=== PATIENT | female | born 1995 | race Caucasian/White ===

== ENCOUNTER → 2020-11-07 17:50 | Outpatient (CLI) | payer OTHER, SELFPAY ==
--- NOTE | 2020-11-07 | DI.RAD.S_ITS ---
PROCEDURE: XR FOOT RT MIN 3V INDICATIONS: FOREIGN BODY IN RIGHT FOOT TECHNIQUE: 3 views of the foot were acquired. COMPARISON: None. FINDINGS: Bones: No acute fractures or dislocations. No suspicious bony lesions. Soft tissues: A radiopaque marker BB was placed on the skin at the plantar lateral aspect of the foot. No separate radiopaque foreign body is identified. IMPRESSION: No acute osseous abnormality. No radiopaque foreign body. Dictated by: Eduardo Cruz M.D. on 11/07/2020 at 17:53 Approved by: Eduardo Cruz M.D. on 11/07/2020 at 17:55
== END ==
PROVIDERS: PCP Family Medicine; Referring Provider Family Medicine; Visit Provider Family Medicine
DX: S90.851A Superficial foreign body, right foot, initial encounter (principal)
CPT/HCPCS: 73630

== ENCOUNTER 2023-04-26 23:50 | Observation (INO) | payer OTHER, SELFPAY ==
[2023-04-27] VITALS (20 sets, daily range): BP systolic 100–174; BP diastolic 54–102; PULSE 52–81; RESP 11–26; TEMP 35.8–36.6; O2SAT 90–99; BMI 38.5
--- NOTE | 2023-04-27 | PATH_ITS ---
[facility] Accession Number: [id number] No. of containers..01 Tissue . 01 Material submitted: . appendix - APPENDIX . 01 Diagnosis: Appendix, Appendectomy: Acute appendicitis and periappendicitis. [facility] 04/30/2023 1103 Local . 01 Electronically signed: . Nelli De La Cruz MD, Pathologist NPI- [id number] . 01 Gross description: . The specimen is received in formalin labeled with the patient's name, , and appendix, consists of a mariee, vermiform appendix measuring 7.7 cm in length by 1.0 cm in average diameter with mariee, roughened serosa and adherent material consistent with exudate. The mesoappendix extends out to 2.4 cm, the margin is inked blue, and sectioning reveals a lumen filled with red-brown, semi-solid material, and ranging from 0.3 to 0.8 cm in greatest dimension. No fecaliths identified. The romero are mariee and average 0.2 cm thick with no lesions or perforations identified. Talend Etl Developer sections to include the margin, one-half of the bisected distal tip, and cross section are submitted in cassette A1. ([id number]) /MRV 04/28/2023 1232 Local . 01 Pathologist provided ICD-10: K35.80 . 01 CPT . 019029 Specimen Comment: A courtesy copy of this report has been sent to [phone] Performed at: 01 [facility] [address] [place] [address], [place], [place] [id number] MD Vj Hull MD Phone: [phone]
[2023-04-27] MEDS: ONDANSETRON 4 MG ODT SL (00:10)
[2023-04-27 00:38] LABS: Add Manual Diff / Slide Review NO; Basophils Absolute Auto 100 /uL (0-100); Basophils Percent Auto 0.7 % (0-2); Eosinophils Absolute Auto 400 /uL (0-450); Eosinophils Percent Auto 2.7 % (2-4); Hematocrit 42.7 % (36-46); Hemoglobin 14.6 g/dL (12.0-16.0); Lymphocytes Absolute Auto 2200 /uL (1100-4500); Lymphocytes Percent Auto 16.7 % (25-40); Mean Corpuscular HGB Conc 34.2 % (30-36); Mean Corpuscular Hemoglobin 29.6 PG (26-34); Mean Corpuscular Volume 86.6 fL (80-100); Monocytes Absolute Auto 800 /uL (0-900); Monocytes Percent Auto 5.7 % (3-14); Neutrophils Absolute Auto 9800 /uL (1500-7000); Neutrophils Percent Auto 74.2 % (50-75); Platelet Count 221 X10^3/uL (150-400); Red Blood Cell Count 4.93 X10^6/uL (4.0-5.2); Red Cell Distribution Width 12.7 % (11.6-14.8); White Blood Cell Count 13.3 X10^3/uL (4.5-11.0)
[2023-04-27 00:44] LABS: Alanine Aminotransferase 38 IU/L (<35); Albumin 4.6 g/dL (3.5-5.0); Albumin Globulin Ratio 1.3 (1.0-2.8); Alkaline Phosphatase 61 U/L (38-126); Aspartate Aminotransferase 32 IU/L (14-36); BUN Creatinine Ratio 13.2 (6-22); Bilirubin Total 0.7 mg/dL (0.2-1.3); Blood Urea Nitrogen 9 mg/dL (7-17); Calcium 10.1 mg/dL (8.4-10.2); Carbon Dioxide 17 mmol/L (22-32); Chloride 106 mmol/L (98-107); Estimated Glomerular Filt Rate > 60 mL/min (>60); Globulin 3.5 g/dL (1.7-4.1); Glucose 124 mg/dL (70-100); HEMOLYSIS < 15 (0-50); Lipase 73 U/L (23-300); Potassium 3.8 mmol/L (3.4-5.1); Sodium 137 mmol/L (137-145); Total Protein 8.1 g/dL (6.3-8.2)
--- NOTE | 2023-04-27 01:01 | ED_ITS ---
HPI - Nausea/Vomiting/Diarrhea General Chief complaint: Nausea/Vomiting/Diarrhea Stated complaint: abd pain, vomiting Time Seen by Provider: 04/27/23 01:01 Source: patient and family Mode of arrival: Ambulatory History of Present Illness HPI Narrative: 27-year-old woman with a history of depression and anxiety had recently done a trial of sertraline and hydroxyzine which was ineffective and was discontinued a month ago. She uses a NuvaRing for control as well as ?the pullout method? she states she has not very consistent with the NuvaRing and after 3 weeks it was removed 2-3 days ago. She is noticing some mild vaginal discharge no significant odors but does not notice any bleeding from her vagina at this time. She presents today complaining of nausea vomiting and abdominal pain increasing in intensity since the . She has had a couple episodes of emesis today. She describes diffuse abdominal pain periumbilical right-sided but nonlocalizing. She has been passing gas. She has had significant decrease in appetite has not been eating much but feels that the amount of urine and stool that she is producing is appropriate given her p.o. intake. She has not complaining of significant headaches, chest pain cough, fevers, palpitations, lower extremity edema. Related Data Home Medications Medication Instructions Recorded Confirmed etonogestrel 0.12 mg-ethinyl 1 vag ring vaginal DAILY 04/27/23 04/27/23 estradiol 0.015 mg/24 hr vaginal control ring (NuvaRing) hydroxyzine pamoate 50 mg capsule 50 mg PO 3XD PRN anxiety 04/27/23 04/27/23 sertraline 100 mg tablet 50 mg PO DAILY 04/27/23 04/27/23 Previous Rx's Medication Instructions Recorded amoxicillin 875 mg-potassium 1 tab PO BID #10 tabs 04/27/23 clavulanate 125 mg tablet celecoxib 200 mg capsule (Celebrex) 200 mg PO BID #60 caps 04/27/23 oxycodone-acetaminophen 5 mg-325 1 tab PO Q4HR PRN Pain, Moderate 04/27/23 mg tablet (4-6) #20 tabs Allergies Allergy/AdvReac Type Severity Reaction Status Date / Time No Known Drug Allergies Allergy Verified 04/30/23 22:54 Review of Systems Review of Systems Narrative: Pertinent positive and negative findings as per HPI Patient History Medical History (Updated 05/01/23 @ 05:00 by Franci Maher MD) Appendicitis Social History household members: family Smoking Status: Current every day smoker alcohol intake: current Exam Initial Vital Signs Initial Vital Signs: Vital Signs Temperature 97.6 F 04/27/23 00:15 Pulse Rate 64 04/27/23 00:15 Respiratory Rate 16 04/27/23 00:15 Blood Pressure 161/102 H 04/27/23 00:15 Pulse Oximetry 97 04/27/23 00:15 Oxygen Delivery Method Room Air 04/27/23 00:15 General: 276 lb, pale appearing mildly diaphoretic appears to be in pain but is able to cooperate with history and exam. HEENT: Moist mucous membranes, normal sclera with reactive pupils, Neck: No JVD, supple Respiratory: Lungs are clear to auscultation, no wheezing no rales no rhonchi. Full and symmetrical air movement Cardiac: Regular rate and rhythm no murmurs no bruits Abdomen: Soft, diffuse tenderness more epigastric, periumbilical and down into the right lower quadrant but certainly not localizing. She does not have any rebound or guarding Skin: Pale, slightly diaphoretic Neurologic: Globally weak but otherwise Grossly neurologically intact with no obvious asymmetries or abnormalities Extremities: No trauma, well perfused Psych: Cooperative, appropriate insight and affect Course Orders Ordered: Discontinued Medications Amoxicillin/Clavulanate Potassium (Amoxicillin/Clav 875/125 Mg) 1 tab PO BID [facility] Last Admin: 04/28/23 08:45 Dose: 1 tab Documented By: Admin: 04/27/23 21:11 Dose: 1 tab Documented By: Admin: 04/27/23 12:18 Dose: 1 tab Documented By: WENDY Celecoxib (Celecoxib 200 Mg Capsule) 200 mg PO BID [facility] Last Admin: 04/28/23 08:45 Dose: 200 mg Documented By: Admin: 04/27/23 21:11 Dose: 200 mg Documented By: Admin: 04/27/23 09:40 Dose: 200 mg Documented By: JOEY Bupivacaine HCl 30 ml/ (Epinephrine HCl 0.15 mg) 0 ml INJ NOW ONE Stop: 04/27/23 10:49 Last Admin: 04/27/23 10:48 Dose: 6 ml Documented By: LISA Gabapentin (Gabapentin 300 Mg Capsule) 300 mg PO NOW ONE Stop: 04/27/23 06:50 Last Admin: 04/27/23 09:40 Dose: 300 mg Documented By: JOEY Hydromorphone HCl (Hydromorphone 0.5 Mg Inj) 0.5 mg IV Q15MIN PRN PRN Reason: Pain, Last Admin: 04/27/23 02:35 Dose: 0.5 mg Documented By: Admin: 04/27/23 01:30 Dose: 0.5 mg Documented By: MIREYA Hydromorphone HCl (Hydromorphone 0.5 Mg Inj) 0.5 mg IV Q2H PRN PRN Reason: Pain, Severe (7-10) Last Admin: 04/27/23 08:35 Dose: 0.5 mg Documented By: Admin: 04/27/23 04:36 Dose: 0.5 mg Documented By: Hydromorphone HCl (Hydromorphone 1 Mg Inj) 0 mg IV Q5MIN PRN PRN Reason: Pain, Mild (1-3) Hydromorphone HCl (Hydromorphone 1 Mg Inj) 0 mg IV Q5MIN PRN PRN Reason: Pain, Moderate (4-6) Hydromorphone HCl (Hydromorphone 1 Mg Inj) 0 mg IV Q5MIN PRN PRN Reason: Pain, Severe (7-10) Hydroxyzine Pamoate (Hydroxyzine Pamoate 25 Mg Capsule) 50 mg PO TID PRN PRN Reason: Anxiety Sodium Chloride (Normal Saline 0.9%) 1,000 mls @ 1,000 mls/hr IV BOLUS ONE Stop: 04/27/23 02:11 Last Infusion: 04/27/23 02:38 Dose: Infused Documented By: Admin: 04/27/23 01:30 Dose: 1,000 mls/hr Documented By: MIREYA Sodium Chloride (Normal Saline 0.9%) 1,000 mls @ 150 mls/hr IV CONT YIMI Last Admin: 04/27/23 02:42 Dose: 150 mls/hr Documented By: MIREYA Piperacillin Sod/Tazobactam (Sod 4.5 gm/ Sodium Chloride) 100 mls @ 200 mls/hr IV NOW ONE Stop: 04/27/23 02:39 Last Infusion: 04/27/23 03:46 Dose: Infused Documented By: Admin: 04/27/23 03:16 Dose: 200 mls/hr Documented By: Metoclopramide HCl (Metoclopramide 10 Mg/2 Ml Inj) 10 mg IV NOW ONE Stop: 04/27/23 01:13 Last Admin: 04/27/23 01:30 Dose: 10 mg Documented By: MIREYA Ondansetron HCl (Ondansetron 4 Mg Odt) 4 mg SL NOW ONE Stop: 04/27/23 00:08 Last Admin: 04/27/23 00:10 Dose: 4 mg Documented By: JULIAN Ondansetron HCl (Ondansetron 4 Mg Odt) 4 mg PO NOW PRN PRN Reason: Nausea And Vomiting Ondansetron HCl (Ondansetron 4 Mg/2 Ml Inj) 4 mg IV NOW PRN PRN Reason: Nausea And Vomiting Ondansetron HCl (Ondansetron 4 Mg/2 Ml Inj) 4 mg IV Q6HR PRN PRN Reason: Nausea And Vomiting Ondansetron HCl (Ondansetron 4 Mg/2 Ml Inj) 4 mg IV NOW PRN PRN Reason: Nausea And Vomiting Oxycodone HCl (Oxycodone Ir 5 Mg Tablet) 5 mg PO PACUNOW PRN PRN Reason: Mild or moderate pain Oxycodone/Acetaminophen (Oxycodone/Acetaminophen 5/325 Tablet) 1 tab PO Q4HR PRN PRN Reason: Pain, Moderate (4-6) Last Admin: 04/28/23 08:45 Dose: 1 tab Documented By: Admin: 04/27/23 19:45 Dose: 1 tab Documented By: Admin: 04/27/23 14:34 Dose: 1 tab Documented By: WENDY Oxycodone/Acetaminophen (Oxycodone/Acetaminophen 5/325 Tablet) 2 tab PO Q6HR PRN PRN Reason: Pain, Severe (7-10) Last Admin: 04/28/23 02:19 Dose: 2 tab Documented By: THAIS Scopolamine (Scopolamine 1 Patch) 1 patch TOP NOW ONE Stop: 04/27/23 06:50 Last Admin: 04/27/23 09:40 Dose: 1 patch Documented By: JOEY Sertraline HCl (Sertraline 50 Mg Tablet) 50 mg PO DAILY YIMI Last Admin: 04/28/23 11:22 Dose: Not Given Documented By: Admin: 04/27/23 12:19 Dose: Not Given Documented By: CLL Vital Signs Vital signs: Vital Signs - 8 hr 04/27/23 00:15 04/27/23 01:01 04/27/23 01:01 Temperature 97.6 F Pulse Rate 64 52 L Respiratory Rate 16 Blood Pressure 161/102 H 174/99 H Pulse Oximetry 97 99 Oxygen Delivery Method Room Air Room Air MDM - Nausea/Vomiting/Diarrhea Lab Data 04/28/23 06:18 04/27/23 00:20 Labs: Lab Results 04/27/23 04/27/23 Range/Units 00:20 01:43 WBC 13.3 H (4.5-11.0) X10^3/uL RBC 4.93 (4.0-5.2) X10^6/uL Hgb 14.6 (12.0-16.0) g/dL Hct 42.7 (36-46) % MCV 86.6 (80-100) fL MCH 29.6 (26-34) PG MCHC 34.2 (30-36) % RDW 12.7 (11.6-14.8) % Plt Count 221 (150-400) X10^3/uL Neut % (Auto) 74.2 (50-75) % Lymph % (Auto) 16.7 L (25-40) % [place] % (Auto) 5.7 (3-14) % Eos % (Auto) 2.7 (2-4) % Baso % (Auto) 0.7 (0-2) % Neut # (Auto) 9800 H (9174-8557) /uL Lymph # (Auto) 2200 (4621-1118) /uL [place] # (Auto) 800 (0-900) /uL Eos # (Auto) 400 (0-450) /uL Baso # (Auto) 100 (0-100) /uL Sodium 137 (137-145) mmol/L Potassium 3.8 (3.4-5.1) mmol/L Chloride 106 (98-107) mmol/L Carbon Dioxide 17 L (22-32) mmol/L BUN 9 (7-17) mg/dL Creatinine 0.68 (0.52-1.04) mg/dL Estimated GFR > 60 (>60) mL/min BUN/Creatinine Ratio 13.2 (6-22) Glucose 124 H (70-100) mg/dL Calcium 10.1 (8.4-10.2) mg/dL Total Bilirubin 0.7 (0.2-1.3) mg/dL AST 32 (14-36) IU/L ALT 38 H (<35) IU/L Alkaline Phosphatase 61 (38-126) U/L Total Protein 8.1 (6.3-8.2) g/dL Albumin 4.6 (3.5-5.0) g/dL Globulin 3.5 (1.7-4.1) g/dL Albumin/Globulin Ratio 1.3 (1.0-2.8) Lipase 73 (23-300) U/L HCG, Quant < 2.4 mIU/mL Urine RBC 0-1/hpf (0-5/HPF) Urine WBC 5-10/hpf H (0-5/HPF) Ur Squamous Epith Cells 1-5 /hpf (0-5/HPF) Urine Bacteria Many (>30) H (None) Urine Mucus 3+ H (Negative) Ur Culture Indicated? Specimen cultured Point of Care Testing Test Results Negative Urine Dip Bedside Urine Glucose Negative Bedside Urine Bilirubin - Negative Bedside Urine Ketone ++ 40 Urine Specific [place] 1.030 Bedside Urine Occult Blood + Bedside Urine Protein ++ 100 Bedside Urine Urobilinogen - Negative Bedside Urine Nitrite - Negative Bedside Urine Leukocytes +/- 15 Esterase MDM Narrative Medical decision making narrative: CC: 48 hours of increasing abdominal pain Complicating co-morbidities: Weight is 126 kilos, recently discontinued Zoloft and hydroxyzine Data collected from: patient, mother Differential considered: Viral gastritis, bowel obstruction, appendicitis, gallbladder disease, colitis, pelvic inflammatory disease Exam documented above, pertinent findings include: 27-year-old woman who is pale diaphoretic appears to be uncomfortable with her nausea and abdominal pain but otherwise fairly benign exam Lab Test results independently reviewed as above. Pertinent findings:. CBC is notable for mild leukocytosis at 13.3 without significant left shift Chemistries are notable for a normal creatinine, AST slightly elevated at 38 remaining studies were unremarkable Lipase is within normal limits Urine shows white cells and bacteria will be cultured Quantitative hCG is unremarkable Independently reviewed EKG: Sinus rhythm at a rate of 53. No acute ischemic changes Imaging studies independently reviewed: CT scan suggests 1.2 cm dilated thickened appendix with appendicolith. Consultations: Care is reviewed with Dr. Hunter, general surgeon. Transition orders will be written she will evaluate the patient in the couple of hours with anticipation of surgical intervention later today. Zosyn will be started Treatments: Fluids, parenteral narcotics, Zofran and antibiotics Re-evaluations:230am patient and mother updated on findings, appendicitis diagnosis and anticipation of admission with probable surgical intervention later today Discussion: 27-year-old young woman with abdominal pain increasing in severity mostly on the right side over the last 48 hours. Presents pale, slightly diaphoretic with increasing abdominal pain. CT scan indicates acute appendicitis. White blood cell count is 13. She also looks to have infected urine. She will be started on Zosyn which should help should the urine culture returned positive and also begin to treat the appendicitis. Findings reviewed with the general surgeon and transition orders are written. Questions are answered for mom and patient and she is safe for transfer to the floor Discharge Plan Departure Patient Disposition: Admitted as Observation Clinical Impression: Appendicitis Qualifiers: Appendicitis type: acute appendicitis Acute appendicitis type: with localized peritonitis Appendicitis gangrene presence: without gangrene Appendicitis perforation presence: with perforation Appendicitis abscess presence: without abscess Qualified Code(s): K35.32 - Acute appendicitis with perforation, localized peritonitis, and gangrene, without abscess Urinary tract infection Qualifiers: Urinary tract infection type: acute cystitis Hematuria presence: without hematuria Qualified Code(s): N30.00 - Acute cystitis without hematuria Admit Date/Time: 04/27/23 02:41 Admit Provider: Michelle Hunter
--- NOTE | 2023-04-27 01:12 | DI.CT.S_ITS ---
PROCEDURE: CT ABDOMEN PELVIS W CON INDICATIONS: Abdominal pain TECHNIQUE: After the administration of intravenous contrast, axial sections acquired from the lung bases to the pubic symphysis. Coronal and sagittal reformats were performed. For radiation dose reduction, the following was used: automated exposure control, adjustment of mA and/or kV according to patient size. COMPARISON: None. FINDINGS: Image quality: Diagnostic. Lower Chest: Mosaic pattern of the lung bases, may represent small airway disease or atypical infectious process. ABDOMEN: Liver: No solid mass. The most superior aspect of the hepatic dome is not included within field of view. Hepatomegaly. Gallbladder: No radiopaque gallstones or wall thickening. Biliary ducts: No biliary dilation. Pancreas: No ductal dilation. Spleen: Size is within normal limits. Adrenal Glands: No adrenal nodules. Kidneys and Ureters: No hydronephrosis. No solid mass. No complex renal cystic lesion which requires follow up. Stomach and Bowel: Small hiatal hernia. Normal colonic caliber, without significant wall thickening. Dilated appendix measuring 1.2 centimeters with thickened romero and mild periappendiceal stranding. Hyperattenuation the appendix may be related to inspissated material or appendicoliths. No extraluminal gas or organized fluid collections. Peritoneum: No abnormal intraperitoneal fluid. No free air. Ventral Wall: No hernia. Abdominal Nodes: No retroperitoneal or mesenteric adenopathy by size criteria. Vessels: Aorta and inferior vena cava are normal in size. PELVIS: Pelvic Organs: Unremarkable. Bladder: Unremarkable. Pelvic Nodes: No enlarged lymph nodes. Miscellaneous: No inguinal hernias are seen. Bones: No aggressive osseous abnormality. Degenerative changes at L5-S1. IMPRESSION: 1. Acute uncomplicated appendicitis. No extraluminal gas or organized fluid collections. 2. Mosaic attenuation of the lung bases, may represent small airway disease atypical infectious process. 3. Small hiatal hernia. Findings are concordant with preliminary interpretation provided by [facility]. Dictated by: Memo Aaron M.D. on 04/27/2023 at 8:01 Approved by: Memo Aaron M.D. on 04/27/2023 at 8:05
[2023-04-27] MEDS: SODIUM CHLORIDE 0.9% 1,000 ML 1000 ML IV (01:30)
[2023-04-27] MEDS: METOCLOPRAMIDE 10 MG/2 ML INJ IV (01:30)
[2023-04-27] MEDS: HYDROMORPHONE 0.5 MG INJ IV ×4 (01:30→08:35)
[2023-04-27 01:43] LABS: HCG Quantitative /Beta subunit < 2.4 mIU/mL
[2023-04-27 01:46] LABS: Bacteria Urine Many (>30); Mucus Urine 3+ (Negative); RBC Urine 0-1/HPF (0-5/HPF); Squamous Epithelial Cell Urine 1-5 /HPF (0-5/HPF); WBC Urine 5-10/HPF (0-5/HPF)
[2023-04-27 01:47] LABS: Culture Indicated Urine Specimen Cultured
[2023-04-27] MEDS: SODIUM CHLORIDE 0.9% 1,000 ML 150 ML IV (02:42)
[2023-04-27] MEDS: PIPERACILLIN/TAZO 4.5 GM in SODIUM CHLORIDE 0.9% 100 ML IV (03:16)
--- NOTE | 2023-04-27 08:57 | PC.NURSE ---
Addendum entered by Haylee Leigh R.N. 04/27/23 09:36: Patient down to surgery at 0930 for her appe. Left in a wheelchair. Original Note: Patient given 0.5mg of iv dilaudid for complaints of 8/10 r.lower quad pain. She was just up to the bathroom and voided tea colored urine of 500cc. Patient will be going down to surgery soon for her Appe. Mom is in room.
--- NOTE | 2023-04-27 09:39 | PM.HP.1 ---
History of Present Illness History of Present Illness Date Patient Seen: 04/27/23 Time Patient Seen: 09:39 Chief complaint: abd pain, vomiting Narrative: 2 days of feeling unwell, sharp pain in RLQ. N/V and diarrhea. No previous episodes. CT scan confirms appendicitis with fecal lith. Possible ruptured given clinical condition. [facility] Social History household members: family Smoking Status: Current every day smoker alcohol intake: current Meds Home Medications and Allergies Home Medications Medication Instructions Recorded Confirmed Type etonogestrel 0.12 mg-ethinyl 1 vag ring vaginal DAILY 04/27/23 04/27/23 History estradiol 0.015 mg/24 hr vaginal control ring (NuvaRing) hydroxyzine pamoate 50 mg capsule 50 mg PO 3XD PRN anxiety 04/27/23 04/27/23 History sertraline 100 mg tablet 50 mg PO DAILY 04/27/23 04/27/23 History Allergies Allergy/AdvReac Type Severity Reaction Status Date / Time No Known Drug Allergies Allergy Verified 04/27/23 00:11 Review of Systems Review of Systems ROS: Yes All systems reviewed with the patient and are negative except as otherwise documented Exam Vital Signs (past 8 hours): - 04/27/23 02:00 04/27/23 02:30 04/27/23 02:48 Temperature Pulse Rate 63 62 63 Respiratory Rate 18 Blood Pressure Pulse Oximetry 95 95 92 Oxygen Delivery Method Room Air Oxygen Flow Rate 04/27/23 02:48 04/27/23 03:13 04/27/23 03:30 Temperature 96.4 F L Pulse Rate 60 Respiratory Rate 16 Blood Pressure 164/86 H 151/92 H Pulse Oximetry 95 Oxygen Delivery Method Room Air Oxygen Flow Rate 0 04/27/23 08:08 04/27/23 09:31 Temperature 97.5 F L 98 F Pulse Rate 70 81 Respiratory Rate 18 24 Blood Pressure 119/72 124/85 Pulse Oximetry 93 91 Oxygen Delivery Method Room Air Oxygen Flow Rate 0 Oxygen Delivery Method Room Air Oxygen Flow Rate 0 Const General: cooperative and No anxious Nutritional Appearance: overweight HENMT Head: normocephalic and atraumatic Eyes General: appearance normal, both eyes and all related structures Conjunctivae: normal conjunctivae Sclera: normal sclerae Neck Neck: trachea midline Resp Effort & Inspection: normal respiratory effort and able to speak in complete sentences Cardio Rate: tachycardic Rhythm: regular rhythm GI Palpation: soft and tender Skin General: elasticity normal and turgor normal Neuro General: patient alert, patient awake and patient oriented x3 Cognition: normal cognition Psych Mental Status: mental status grossly normal Affect: normal affect Attitude: cooperative Judgment: judgment good Objective Labs 04/27/23 00:20 04/27/23 00:20 Labs: Laboratory Results - last 24 hr 04/27/23 04/27/23 00:20 01:43 WBC 13.3 H RBC 4.93 Hgb 14.6 Hct 42.7 MCV 86.6 MCH 29.6 MCHC 34.2 RDW 12.7 Plt Count 221 Neut % (Auto) 74.2 Lymph % (Auto) 16.7 L [place] % (Auto) 5.7 Eos % (Auto) 2.7 Baso % (Auto) 0.7 Neut # (Auto) 9800 H Lymph # (Auto) 2200 [place] # (Auto) 800 Eos # (Auto) 400 Baso # (Auto) 100 Sodium 137 Potassium 3.8 Chloride 106 Carbon Dioxide 17 L BUN 9 Creatinine 0.68 Estimated GFR > 60 BUN/Creatinine Ratio 13.2 Glucose 124 H Calcium 10.1 Total Bilirubin 0.7 AST 32 ALT 38 H Alkaline Phosphatase 61 Total Protein 8.1 Albumin 4.6 Globulin 3.5 Albumin/Globulin Ratio 1.3 Lipase 73 HCG, Quant < 2.4 Urine RBC 0-1/hpf Urine WBC 5-10/hpf H Ur Squamous Epith Cells 1-5 /hpf Urine Bacteria Many (>30) H Urine Mucus 3+ H Ur Culture Indicated? Specimen cultured Assessment & Plan Assessment & Plan narrative: Possible ruptured appendicitis w fecal lith Plan: antibiotics and lap appy Time Spent With Patient Time with patient: 30 to 49 minutes with 50% spent counseling/coordinating care
[2023-04-27] MEDS: CELECOXIB 200 MG CAPSULE PO ×2 (09:40→21:11)
[2023-04-27] MEDS: GABAPENTIN 300 MG CAPSULE PO (09:40)
[2023-04-27] MEDS: SCOPOLAMINE 1 PATCH TOP (09:40)
--- NOTE | 2023-04-27 10:16 | SUR.OPER ---
Supine on padded OR bed, head on pillow, RIGHT ARM secured on padded arm boards at <90 degrees abduction, LEFT ARM TUCKED AT SIDE WITH GEL PAD AND DRAW SHEET, legs uncrossed, safety belt at thigh, tape over blanket over lower legs.
--- NOTE | 2023-04-27 10:25 | CM.DANOTE ---
Addendum entered by URSULA Navarro 04/27/23 15:03: Per RN, pt doing well. Likely no CM needs and likely to dc tomorrow. MONIQUE Original Note: DCP assessment note Pt is a 27yo F here following RLQ abdominal pain/n/v. Lap appy with Dr. Hunter .12.10 at 930am. PCP [employer] Payer Wandy and self pay [employer] reviewed EMR. 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 Per chart review, supportive mother at bedside. No identified CM needs at this time. Plan: home with family when medically stable, likely later today or next day. CM team will continue to follow as needed. URSULA Navarro Discharge Planning/Care Management CM Discharge Assessment Start: 04/27/23 10:24 Freq: Status: Active Protocol: Document 04/27/23 10:24 (Rec: 04/27/23 10:25 [id number]) Discharge Planning Assessment Assigned Visualization Developer URSULA Pérez DPOA/Assigned Designee Name Telma (Mother) Contact Information [phone] Advance Directives? No History Provided By Medical Record Prior Living Arrangements House Household Members family Independent with ADL's Yes Is patient alert and oriented? Yes Discharge Plan Home Transportation Arrangement family in POV Referrals Initiated None needed Whiteboard Updated in Patient Room with No name and ext. # of Visualization Developer Review Status In Process Next Review Type Continued Stay Review
[2023-04-27] MEDS: BUPIVACAINE 0.25% (PF) 30 ML, EPINEPHrine 0.15 MG INJ (10:48)
--- NOTE | 2023-04-27 11:18 | P.OP_ITS ---
Operative Date/Time/Diagnoses Date of procedure: 04/27/23 Time of procedure: 11:18 Pre-op diagnosis: Appendicitis Post-op diagnosis: other (Ruptured appendicitis) Procedure & Clinicians Procedure: Preop diagnosis: Ruptured appendicitis Postop diagnosis: Same Operative procedure: Laparoscopic appendectomy Surgeon: Yesi Hunter MD Anesthetic: General with ET tube intubation along with local Findings: Early ruptured appendicitis, no abscess Procedure: Patient placed in a supine position. Prepped and draped in sterile fashion to expose her abdomen. Infraumbilical port site was placed using open t echnique a 12 mm port. Insufflation began all other ports were placed under direct vision including a 5 mm port in the suprapubic area and a 5 mm port in the left lateral abdomen. Appendix was identified and lifted cephalad for exposure. Appendiceal mesentery was taken down with electrocautery and excellent hemostasis. I then used a linear REKHA stapling device to amputate the appendix. The base was healthy in nature and no bleeding. I then placed the appendix into an Endo-Catch bag and pulled it through the infraumbilical port site intact. Small amount of cloudy fluid in the pelvis was irrigated to a clear return. I then removed all ports and began closure. Closure consisted of interrupted 0 Vicryl for fascial closure. Skin was closed with a running 4-0 Vicryl. Steri- Strips and sterile dressings were placed. Patient was awakened, extubated, taken to recovery room in stable condition. Needle, instrument, sponge count was correct. Blood loss: 20 mL Specimen: Appendix Same procedure as scheduled: Yes Indications: Ruptured appendicitis Surgeon: Michelle Hunter Click Yes if Unassisted: Yes Anesthesia Type: General and Local Operative Notes Findings: Ruptured appendicitis Closure Type: primary Specimen(s): other (Appendix) Estimated Blood Loss (mL): 20 Procedure in detail: See above Post-operative Condition: stable Disposition: PACU
[2023-04-27] MEDS: AMOXICILLIN/CLAV 875/125 MG 1 TAB PO ×2 (12:18→21:11)
[2023-04-27 14:18] LABS: Add Manual Diff / Slide Review NO; Basophils Absolute Auto 0 /uL (0-100); Basophils Percent Auto 0.2 % (0-2); Eosinophils Absolute Auto 0 /uL (0-450); Eosinophils Percent Auto 0.3 % (2-4); Hematocrit 38.4 % (36-46); Hemoglobin 13.2 g/dL (12.0-16.0); Lymphocytes Absolute Auto 800 /uL (1100-4500); Lymphocytes Percent Auto 6.1 % (25-40); Mean Corpuscular HGB Conc 34.2 % (30-36); Mean Corpuscular Volume 87.7 fL (80-100); Monocytes Absolute Auto 400 /uL (0-900); Monocytes Percent Auto 2.8 % (3-14); Neutrophils Absolute Auto 12000 /uL (1500-7000); Neutrophils Percent Auto 90.6 % (50-75); Platelet Count 212 X10^3/uL (150-400); Red Blood Cell Count 4.38 X10^6/uL (4.0-5.2); Red Cell Distribution Width 12.6 % (11.6-14.8); White Blood Cell Count 13.3 X10^3/uL (4.5-11.0)
[2023-04-27] MEDS: OXYCODONE/ACETAMINOPHEN 5/325 TABLET 1 TAB PO ×2 (14:34→19:45)
[2023-04-28] MEDS: OXYCODONE/ACETAMINOPHEN 5/325 TABLET 2 TAB PO (02:19)
[2023-04-28 06:41] LABS: Hematocrit 35.5 % (36-46); Hemoglobin 12.3 g/dL (12.0-16.0); Mean Corpuscular HGB Conc 34.7 % (30-36); Mean Corpuscular Hemoglobin 30.5 PG (26-34); Mean Corpuscular Volume 87.7 fL (80-100); Platelet Count 211 X10^3/uL (150-400); Red Blood Cell Count 4.05 X10^6/uL (4.0-5.2); Red Cell Distribution Width 12.6 % (11.6-14.8); White Blood Cell Count 10.8 X10^3/uL (4.5-11.0)
[2023-04-28 08:00] VITALS: BP 114/72; PULSE 68; RESP 16; TEMP 36.1; O2SAT 93
--- NOTE | 2023-04-28 08:31 | PC.NURSE ---
Patients small incisions with dressings to lower abdomen all cdi. Patient has been getting percocet for pain and this has been helpful for patient. S.O. is at bedside and patient is tolerating diet well.
[2023-04-28] MEDS: AMOXICILLIN/CLAV 875/125 MG 1 TAB PO (08:45)
[2023-04-28] MEDS: OXYCODONE/ACETAMINOPHEN 5/325 TABLET 1 TAB PO (08:45)
[2023-04-28] MEDS: CELECOXIB 200 MG CAPSULE PO (08:45)
--- NOTE | 2023-04-28 10:43 | CM.DPNOTE ---
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 Per RN, juan luis planned for today. No CM needs identified. Plan: dc home today with partner. No CM needs identified. CM team will follow as needed. URSULA Navarro
[2023-04-28 12:24] VITALS: BP 108/61; PULSE 70; RESP 17; TEMP 36.7; O2SAT 94
== END 2023-04-28 13:00 | disposition home or self-care (01) ==
LOC: ED 04-27 02:38 → AC 04-27 02:42
PROVIDERS: Admitting Provider Surgery; Emergency Provider Emergency Medicine; PCP Family Medicine; Referring Provider Emergency Medicine; Visit Provider Surgery
PROC: 0DTJ4ZZ Resection of Appendix, Percutaneous Endoscopic Approach (ICD-10-PCS; CPT 44970; principal; 2023-04-27 10:15)
DX: K35.32 Acute appendicitis with perforation, localized peritonitis, and gangrene, without abscess (principal)
CPT/HCPCS: 44970; 36415; 74177; 80053; 81003; 81015; 81025; 83690; 84702; 85025; 85027; 87086; 93005; 93010; 96361; 96365; 96375; 96376; 99221; 99284; G0378; J0171; J1170; J1885; J2250; J2405; J2543; J2765; J3010; Q9967

== ENCOUNTER 2023-04-30 22:42 | Emergency (ER) | payer OTHER, SELFPAY ==
[2023-04-27 03:30] VITALS: BMI 38.5
[2023-04-30 22:46] VITALS: BP 127/92; PULSE 80; RESP 16; TEMP 36.6; O2SAT 97; BMI 38.6
[2023-04-30] MEDS: ONDANSETRON 4 MG/2 ML INJ IV (23:23)
[2023-04-30] MEDS: SODIUM CHLORIDE 0.9% 1,000 ML 1000 ML IV (23:23)
[2023-04-30 23:27] LABS: Add Manual Diff / Slide Review NO; Basophils Absolute Auto 100 /uL (0-100); Basophils Percent Auto 0.5 % (0-2); Eosinophils Absolute Auto 400 /uL (0-450); Eosinophils Percent Auto 2.8 % (2-4); Hematocrit 38.8 % (36-46); Hemoglobin 13.5 g/dL (12.0-16.0); Lymphocytes Absolute Auto 3700 /uL (1100-4500); Lymphocytes Percent Auto 23.6 % (25-40); Mean Corpuscular HGB Conc 34.8 % (30-36); Mean Corpuscular Hemoglobin 30.2 PG (26-34); Mean Corpuscular Volume 86.6 fL (80-100); Monocytes Absolute Auto 900 /uL (0-900); Monocytes Percent Auto 5.5 % (3-14); Neutrophils Absolute Auto 10700 /uL (1500-7000); Neutrophils Percent Auto 67.6 % (50-75); Platelet Count 359 X10^3/uL (150-400); Red Blood Cell Count 4.49 X10^6/uL (4.0-5.2); Red Cell Distribution Width 12.6 % (11.6-14.8); White Blood Cell Count 15.8 X10^3/uL (4.5-11.0)
[2023-04-30 23:46] LABS: Alanine Aminotransferase 50 IU/L (<35); Albumin 3.8 g/dL (3.5-5.0); Albumin Globulin Ratio 1.2 (1.0-2.8); Alkaline Phosphatase 41 U/L (38-126); Aspartate Aminotransferase 42 IU/L (14-36); BUN Creatinine Ratio 16.9 (6-22); Bilirubin Total 0.6 mg/dL (0.2-1.3); Blood Urea Nitrogen 11 mg/dL (7-17); Calcium 9.2 mg/dL (8.4-10.2); Carbon Dioxide 18 mmol/L (22-32); Chloride 109 mmol/L (98-107); Estimated Glomerular Filt Rate > 60 mL/min (>60); Globulin 3.2 g/dL (1.7-4.1); Glucose 119 mg/dL (70-100); Potassium 4.2 mmol/L (3.4-5.1); Sodium 137 mmol/L (137-145)
[2023-04-30 23:50] LABS: HEMOLYSIS 20 (0-50)
[2023-05-01 02:07] VITALS: BP 131/78; PULSE 69; RESP 18; O2SAT 91
--- NOTE | 2023-05-01 02:40 | ED_ITS ---
HPI - General Adult General Chief complaint: Syncope Stated complaint: mom states she passed out Time Seen by Provider: 04/30/23 22:59 Source: patient and family Mode of arrival: Ambulatory History of Present Illness HPI narrative: 27-year-old woman who was initially seen on the with abdominal plain diagnosed with a appendicitis, went to the operating room and was found to have early ruptured appendicitis without abscess. She was discharged home after her laparoscopic adenopathy with amoxicillin. She continues to take this. She states she is had 2 bowel movements after discharge from the hospital. This evening she went up to go to the bathroom had finished voiding and became lightheaded. Called for her mother who found her in the process of falling off the toilet. She caught her so that there was no significant fall. Mom describes her as being completely passed out. As she began to wake up she had an episode of emesis. Mom called 911 and patient is brought in. Patient and her mother both confirm she has been drinking quite a bit of water. She has been increasing solid foods appropriately. Blood pressure on arrival is 127/92 heart rate is 80 and she is afebrile. She is slightly flushed and her mother is very concerned. On further questioning they note they [place] to the acute appendicit[place]. They at all had a slight cough and dry throat attributed to what they felt was the dry air from the desert. Luis M notes that the cough is significantly slowing and almost resolved this point. She describes not feeling short of breath, no wheezing and no prior history of asthma Related Data Home Medications Medication Instructions Recorded Confirmed etonogestrel 0.12 mg-ethinyl 1 vag ring vaginal DAILY 04/27/23 04/27/23 estradiol 0.015 mg/24 hr vaginal control ring (NuvaRing) hydroxyzine pamoate 50 mg capsule 50 mg PO 3XD PRN anxiety 04/27/23 04/27/23 sertraline 100 mg tablet 50 mg PO DAILY 04/27/23 04/27/23 Previous Rx's Medication Instructions Recorded amoxicillin 875 mg-potassium 1 tab PO BID #10 tabs 04/27/23 clavulanate 125 mg tablet celecoxib 200 mg capsule (Celebrex) 200 mg PO BID #60 caps 04/27/23 oxycodone-acetaminophen 5 mg-325 1 tab PO Q4HR PRN Pain, Moderate 04/27/23 mg tablet (4-6) #20 tabs Allergies Allergy/AdvReac Type Severity Reaction Status Date / Time No Known Drug Allergies Allergy Verified 04/30/23 22:54 Review of Systems Review of Systems Narrative: Pertinent positive and negative findings as per HPI Patient History Medical History (Updated 05/01/23 @ 04:21 by Franci Maher MD) Appendicitis Social History household members: family Smoking Status: Current every day smoker alcohol intake: current Smoking Status: Current every day smoker alcohol intake frequency: holidays/special occasions only Substance Use Type: does not use Exam Initial Vital Signs Initial Vital Signs: Vital Signs Temperature 97.9 F 04/30/23 22:46 Pulse Rate 80 04/30/23 22:46 Respiratory Rate 16 04/30/23 22:46 Blood Pressure 127/92 H 04/30/23 22:46 Pulse Oximetry 97 04/30/23 22:46 Oxygen Delivery Method Room Air 04/30/23 22:46 General: Somewhat flushed, in no acute distress. Well-nourished well- developed HEENT: Dry lips but Moist mucous membranes, normal sclera with reactive pupils, Respiratory: Lungs with scattered pops and wheezes in the upper lung moody do clear with deep breathing. No rhonchi or crackles. Cardiac: Regular rate and rhythm no murmurs no bruits Abdomen: Soft, mildly tender periumbilical. The surgical incision sites are clean and dry. There is expected bruising around the umbilicus. No drainage from the wounds Skin: Warm and dry, no rashes Neurologic: Grossly neurologically intact with no obvious asymmetries or abnormalities Extremities: No trauma, well perfused Psych: Cooperative, appropriate insight and affect Course Orders Ordered: ED Orders 04/30/23 23:20 Complete Blood Count AUTO DIFF Stat Comprehensive Metabolic Panel Stat 05/01/23 02:56 Complete Blood Count AUTO DIFF Stat Discontinued Medications Sodium Chloride (Normal Saline 0.9%) 1,000 mls @ 1,000 mls/hr IV BOLUS ONE Stop: 04/30/23 23:58 Last Infusion: 05/01/23 00:49 Dose: Infused Documented By: Admin: 04/30/23 23:23 Dose: 1,000 mls/hr Documented By: AZALIA Sodium Chloride (Normal Saline 0.9%) 1,000 mls @ 1,000 mls/hr IV BOLUS ONE Stop: 05/01/23 03:55 Last Admin: 05/01/23 03:28 Dose: 1,000 mls/hr Ondansetron HCl (Ondansetron 4 Mg/2 Ml Inj) 4 mg IV NOW ONE Stop: 04/30/23 23:00 Last Admin: 04/30/23 23:23 Dose: 4 mg Documented By: AZALIA Vital Signs Vital signs: Vital Signs - 8 hr 04/30/23 22:46 05/01/23 02:07 05/01/23 03:27 Temperature 97.9 F Pulse Rate 80 69 64 Respiratory Rate 16 18 16 Blood Pressure 127/92 H 131/78 135/77 Pulse Oximetry 97 91 98 Oxygen Delivery Method Room Air Room Air Room Air Medical Decision Making Lab Data 05/01/23 03:22 04/30/23 23:20 Labs: Lab Results 04/30/23 05/01/23 Range/Units 23:20 03:22 WBC 15.8 H 14.1 H (4.5-11.0) X10^3/uL RBC 4.49 4.67 (4.0-5.2) X10^6/uL Hgb 13.5 14.0 (12.0-16.0) g/dL Hct 38.8 40.7 (36-46) % MCV 86.6 87.3 (80-100) fL MCH 30.2 30.1 (26-34) PG MCHC 34.8 34.5 (30-36) % RDW 12.6 12.4 (11.6-14.8) % Plt Count 359 337 (150-400) X10^3/uL Neut % (Auto) 67.6 68.4 (50-75) % Lymph % (Auto) 23.6 L 23.3 L (25-40) % [place] % (Auto) 5.5 5.2 (3-14) % Eos % (Auto) 2.8 2.5 (2-4) % Baso % (Auto) 0.5 0.6 (0-2) % Neut # (Auto) 41639 H 9600 H (5100-7521) /uL Lymph # (Auto) 3700 3300 (0876-7780) /uL [place] # (Auto) 900 700 (0-900) /uL Eos # (Auto) 400 400 (0-450) /uL Baso # (Auto) 100 100 (0-100) /uL Sodium 137 (137-145) mmol/L Potassium 4.2 (3.4-5.1) mmol/L Chloride 109 H (98-107) mmol/L Carbon Dioxide 18 L (22-32) mmol/L BUN 11 (7-17) mg/dL Creatinine 0.65 (0.52-1.04) mg/dL Estimated GFR > 60 (>60) mL/min BUN/Creatinine Ratio 16.9 (6-22) Glucose 119 H (70-100) mg/dL Calcium 9.2 (8.4-10.2) mg/dL Total Bilirubin 0.6 (0.2-1.3) mg/dL AST 42 H (14-36) IU/L ALT 50 H (<35) IU/L Alkaline Phosphatase 41 (38-126) U/L Total Protein 7.0 (6.3-8.2) g/dL Albumin 3.8 (3.5-5.0) g/dL Globulin 3.2 (1.7-4.1) g/dL Albumin/Globulin Ratio 1.2 (1.0-2.8) Urine Dip Bedside Urine Glucose Negative Bedside Urine Bilirubin - Negative Bedside Urine Ketone - Negative Urine Specific [place] 1.02 Bedside Urine Occult Blood +++ Bedside Urine pH 6 Bedside Urine Protein - Negative Bedside Urine Urobilinogen - Negative Bedside Urine Nitrite - Negative Bedside Urine Leukocytes - Negative Esterase Point of care testing: Urine Dip Bedside Urine Glucose Negative Bedside Urine Bilirubin - Negative Bedside Urine Ketone - Negative Urine Specific [place] 1.02 Bedside Urine Occult Blood +++ Bedside Urine pH 6 Bedside Urine Protein - Negative Bedside Urine Urobilinogen - Negative Bedside Urine Nitrite - Negative Bedside Urine Leukocytes - Negative Esterase MDM Narrative Medical decision making narrative: CC: Syncopal episode Complicating co-morbidities: Laparoscopic appendectomy on the 8th. Currently on amoxicillin. Data collected from: patient, mother Medical records reviewed: Op notes reviewed from recent hospitalization. In the emergency department urine had shown white cells and bacteria. Culture from this does not show urinary tract infection. Differential considered: Vasovagal syncope, recurrent infection Exam documented above, pertinent findings include: Flushed cheeks, scattered minimal wheeze in upper lung moody, tenderness as would be expected 4 days post laparoscopic surgery for appendicitis. She is slightly orthostatic when she stands. Lab Test results independently reviewed as above. Pertinent findings: CBC shows white blood cell count at 15.8 with no significant left shift. I suspect that this is demargination. There is no anemia. Chemistries show slight bump to AST and ALT. Otherwise unremarkable Treatments: 2 L of fluid, parenteral ondansetron Re-evaluations: After fluids given and with re-evaluation, mom is very very concerned about the white blood cell count at 15,000. I tried to explain the concept of demargination but she is far more focused on the concept of sepsis and that a white blood cell count of 15 would require hospitalization. I suggested that we repeat a L of fluid as luis m does still seem slightly orthostatic and repeat a CBC and see if it has improved as she is been resting for the last number of hours. At this time there is no indication of an acute surgical abdomen or reason for additional imaging. Discussion: 27-year-old woman with what seems to be a vasovagal syncope episode while sitting on the toilet this afternoon. She is responded nicely to 2 L of fluid. There does not appear to be any evidence of recurrent infection intra- abdominally. She does not have evidence of urinary tract infection. There is no evidence of significant seizure, sepsis, pulmonary infection. I am not finding evidence that would suggest she needs additional workup, advanced imaging or hospitalization at this time. Findings reviewed with patient and her mother. Spleen that they are still going to need a bit more time for her to completely heal. We discussed vasovagal syncope. Questions were answered and she is safe for discharge home Discharge Plan Departure Patient Disposition: Home Clinical Impression: Vasovagal syncope, Post-operative pain Instructions: DI for Syncope in Adults (Fainting) Activity Restrictions/Additional Instructions: Thank you for coming in today Your body is clearly still healing from your surgery. I believe the episode that you are experienced today was a combination of low blood pressure, positioning and a body that is continuing to heal. I did not find any evidence of worsening or recurrent infection either intra- abdominally or with a urine infection. Your lungs were reassuringly normal. Your responded nicely to 2 L of fluid. I believe is safe for you to go home. You do still need a bit more time for your body to completely heal. Please gently increase activity as well as oral intake. It sounds like you are trying to drink appropriate amounts of fluids. Please do finish your current course of antibiotics as prescribed by your surgeon after your appendectomy. If you find that you are getting worse or develop any new symptoms, please feel free to return to the emergency department for further evaluation. Prescriptions: No Action sertraline 100 mg tablet 50 mg PO DAILY Patient Comments: stopped taking about one month ago hydroxyzine pamoate 50 mg capsule 50 mg PO 3XD PRN (Reason: anxiety) etonogestrel-ethinyl estradiol [NuvaRing] 0.12-0.015 mg/24 hr Ring 1 vag ring VAGINAL DAILY Patient Comments: Patient took out 04/26/2023 celecoxib [Celebrex] 200 mg Capsule 200 mg PO BID Qty: 60 0RF oxycodone-acetaminophen 5-325 mg Tablet 1 tab PO Q4HR PRN (Reason: Pain, Moderate (4-6)) Qty: 20 0RF amoxicillin-pot clavulanate 875-125 mg Tablet 1 tab PO BID Qty: 10 0RF Referrals: Feng Cortes MD [Primary Care Provider] - Stand Alone Forms: Patient Portal/API
[2023-05-01 03:27] VITALS: BP 135/77; PULSE 64; RESP 16; O2SAT 98
[2023-05-01] MEDS: SODIUM CHLORIDE 0.9% 1,000 ML 1000 ML IV (03:28)
[2023-05-01 03:30] LABS: Add Manual Diff / Slide Review NO; Basophils Absolute Auto 100 /uL (0-100); Basophils Percent Auto 0.6 % (0-2); Eosinophils Absolute Auto 400 /uL (0-450); Eosinophils Percent Auto 2.5 % (2-4); Hematocrit 40.7 % (36-46); Lymphocytes Absolute Auto 3300 /uL (1100-4500); Lymphocytes Percent Auto 23.3 % (25-40); Mean Corpuscular HGB Conc 34.5 % (30-36); Mean Corpuscular Hemoglobin 30.1 PG (26-34); Mean Corpuscular Volume 87.3 fL (80-100); Monocytes Absolute Auto 700 /uL (0-900); Monocytes Percent Auto 5.2 % (3-14); Neutrophils Absolute Auto 9600 /uL (1500-7000); Neutrophils Percent Auto 68.4 % (50-75); Platelet Count 337 X10^3/uL (150-400); Red Blood Cell Count 4.67 X10^6/uL (4.0-5.2); Red Cell Distribution Width 12.4 % (11.6-14.8); White Blood Cell Count 14.1 X10^3/uL (4.5-11.0)
[2023-05-01 04:30] VITALS: BP 132/75; PULSE 69; RESP 20; TEMP 36.8; O2SAT 98
== END 2023-05-01 04:41 | disposition home or self-care (01) ==
PROVIDERS: Emergency Provider Emergency Medicine; PCP Family Medicine
DX: R55 Syncope and collapse (principal); G89.18 Other acute postprocedural pain
CPT/HCPCS: 36415; 80053; 81003; 85025; 96374; 99284; J2405